=== PATIENT | female | born 1945 | race Caucasian/White ===

== ENCOUNTER 2017-10-18 11:31 | Emergency (ER) | payer OTHER ==
[~2017-10-18] VITALS: Ht 170.2 cm; Wt 76.2 kg
[2017-10-18 11:42] VITALS: BP 152/76
[2017-10-18] MEDS ORDERED: BENA20TA PO (11:48)
[2017-10-18] MEDS ORDERED: BACL10TA4 PO (11:48)
[2017-10-18] MEDS ORDERED: MIC5 PO (11:48)
[2017-10-18] MEDS ORDERED: ATOR20TA PO (11:48)
[2017-10-18] MEDS ORDERED: GABA300C PO (11:48)
--- NOTE | 2017-10-18 12:05 | NUR ---
Patient ambulated to bed 11 at this time.
--- NOTE | 2017-10-18 12:21 | NUR ---
PATIENT PRESENTS TO ED WITH c/o POSTERIOR JUÁREZ THAT STARTED TODAY;DENIES DIZZINEESS/BLURYY OF VISSION;DENIES ANY NUMBNESS/TONGLING SENSATION;HX OF MIGRAINE AND DM;HAD A NECK AND BACK SURGERY; DENIES N/V/D; SKIN IS PINK/WARM/DRY; AAOX4 WITH EVEN AND STEADY GAIT; PT DENIES ANY FEVER, CP, SOB, OR COUGH AT THIS TIME; PATIENT STATES PAIN OF 8/10 AT THIS TIME; PATIENT POSITIONED FOR COMFORT; HOB ELEVATED; BEDRAILS UP X2; BED DOWN. ER MD MADE AWARE OF PT STATUS.
[2017-10-18] MEDS ORDERED: DEXAMETHASONE 10 MG/ML VIAL IM ONE (13:05)
[2017-10-18] MEDS ORDERED: HYDROmorphone PFS 2 MG/ML SYR IM ONE (13:05)
--- NOTE | 2017-10-18 13:28 | NUR ---
PT RETURNED FROM RADIOLOGY
[2017-10-18] MEDS ORDERED: ONDANSETRON 4 MG ODT PO ONE (14:50)
--- NOTE | 2017-10-18 15:07 | NUR ---
pt vomitted the zofran;melissa ramirez made aware;ordered for phenergan IM .
[2017-10-18] MEDS ORDERED: PROMETHAZINE 25 MG/ML VIAL IM ONE (15:20)
[2017-10-18] MEDS ORDERED: NACL 0.9% 1,000 ML IV SCH (15:47)
--- NOTE | 2017-10-18 15:48 | NUR ---
PER ER MD NOT TO DISCHARGE PT YET;WILL ORDER IVF AND BLOOD WORK;
[2017-10-18] MEDS ORDERED: FAMOTIDINE 20 MG/2 ML VIAL IVP ONE (15:50)
[2017-10-18] MEDS ORDERED: ONDANSETRON 4 MG/2 ML VIAL IVP ONE (15:50)
[2017-10-18 16:57] LABS: ANION GAP 16.8 (8-16); CREATININE 0.7 mg/dL (0.6-1.3); POTASSIUM 3.8 mmol/L (3.5-5.1)
[2017-10-18 16:59] LABS: BASOPHILS # (AUTO) 0.3 K/uL (0.00-0.22); EOSINOPHILS # (AUTO) 0.1 K/uL (0-0.4); HEMATOCRIT 43.2 % (36-48); HEMOGLOBIN 14.1 g/dL (12.0-16.0); LYMPHOCYTES # (AUTO) 0.7 K/uL (2.5-16.5); MEAN CORPUSCULAR HEMOGLOBIN 29 pg (27-31); MEAN CORPUSCULAR HGB CONC 33 g/dL (33-37); MEAN CORPUSCULAR VOLUME 89 fL (80-94); MONOCYTES # (AUTO) 0.2 K/uL (0.8-1.0); NEUTROPHILS # (AUTO) 6.1 K/uL (1.8-7.7); PLATELET COUNT (AUTO) 140 K/uL (140-450); RED BLOOD CELL COUNT(AUTO) 4.88 MIL/uL (4.20-5.40); RED CELL DISTRIBUTION WIDTH 12.9 % (11.6-13.7); WHITE BLOOD COUNT (AUTO) 7.4 K/uL (4.8-10.8)
[2017-10-18 17:03] LABS: TOTAL BILIRUBIN 0.3 mg/dL (0.0-1.0)
[2017-10-18 17:55] LABS: APPEARANCE,URINE CLEAR (CLEAR); BILIRUBIN,URINE NEGATIVE (NEGATIVE); BLOOD, URINE NEGATIVE (NEGATIVE); COLOR,URINE YELLOW (YELLOW); LEUKOCYTE ESTERASE ,URINE NEGATIVE (NEGATIVE); NITRITE, URINE NEGATIVE (NEGATIVE); PH,URINE 5.5 (5.0-9.0); UGLUCOSE TRACE (NEGATIVE)
[2017-10-18 18:14] VITALS: BP 122/76
--- NOTE | 2017-10-18 18:14 | NUR ---
Patient discharged with v/s stable. Written and verbal after care instructions given and explained. Patient alert, oriented and verbalized understanding of instructions. Ambulatory with steady gait. All questions addressed prior to discharge. ID band removed. Patient advised to follow up with PMD. Rx of FIORICET given. Patient educated on indication of medication including possible reaction and side effects. Opportunity to ask questions provided and answered.
== END 2017-10-18 18:14 | disposition home or self-care (01) ==
LOC: MED 11:31
DX: G44.209 Tension-type headache, unspecified, not intractable (principal); E11.9 Type 2 diabetes mellitus without complications; R03.0 Elevated blood-pressure reading, without diagnosis of hypertension; Z88.8 Allergy status to other drugs, medicaments and biological substances
CPT/HCPCS: 36415; 70450; 72125; 80053; 81003; 82150; 82948; 83690; 85025; 96361; 96372; 96374; 96375; 99285; J1100; J1170; J2405; J2550; J3490; J7030; S0119

== ENCOUNTER 2018-10-02 12:57 | Emergency (ER) | payer OTHER ==
[~2018-10-02] VITALS: Ht 165.1 cm; Wt 75.3 kg
[~2018-10-02 12:57] MED LIST: ATOR20TA PO; BACL10TA4 PO; BENA20TA PO; GABA300C PO; MIC5 PO
[2018-10-02 13:07] VITALS: BP 131/61
--- NOTE | 2018-10-02 15:07 | NUR ---
PATIENT TAKEN TO ER BED 10 VIA WHEELCHAIR
--- NOTE | 2018-10-02 15:19 | NUR ---
73 yo f bib daughter w/ c/o migraine since yesterday, general weakness, nasal congestion, cough x 1 wk. reports that she received cortisone shots to the neck last week, worried that is causing her migraine. pt states that she took venkatesh this morning for her cold symptoms. denies n/v/d/fever. rr even and unlabored, lungs bl clear. aaox4, gcs 15. cms intact. abd soft, non-tender. er md notified. pt needs met, safety precautions in place. daughter at bedside. will continue to monitor.
--- NOTE | 2018-10-02 16:17 | NUR ---
pt lying in hospital [facility] with daughter at bedside. aaox4. rr even and unlabored. safety precautions in place, will continue to monitor.
[2018-10-02] MEDS ORDERED: KETOROLAC 60 MG/2 ML VIAL IM ONE (16:25)
[2018-10-02] MEDS ORDERED: METOCLOPRAMIDE 10 MG/2 ML INJ VIAL IM ONE (16:25)
--- NOTE | 2018-10-02 17:17 | NUR ---
pt lying in hospital [facility] with daughter at bedside. aaox4. rr even and unlabored. awaiting discharge paperwork. safety precautions in place, will continue to monitor.
[2018-10-02 18:00] VITALS: BP 130/68
--- NOTE | 2018-10-02 18:01 | NUR ---
Patient discharged with v/s stable. Written and verbal after care instructions given and explained. Patient alert, oriented and verbalized understanding of instructions. Ambulatory with steady gait. All questions addressed prior to discharge. ID band removed. Patient advised to follow up with PMD. Rx of Reglan given. Patient educated on indication of medication including possible reaction and side effects. Opportunity to ask questions provided and answered.
== END 2018-10-02 18:01 | disposition home or self-care (01) ==
LOC: MED 12:57
DX: R51 Headache (principal); R06.00 Dyspnea, unspecified; E11.9 Type 2 diabetes mellitus without complications; I10 Essential (primary) hypertension; Z88.8 Allergy status to other drugs, medicaments and biological substances; Z88.6 Allergy status to analgesic agent; Z79.84 Long term (current) use of oral hypoglycemic drugs; Z79.899 Other long term (current) drug therapy
CPT/HCPCS: 82948; 96372; 99283; J1885; J2765

== ENCOUNTER 2019-02-15 22:29 | Emergency (ER) | payer OTHER ==
[~2019-02-15] VITALS: Ht 167.6 cm; Wt 74.8 kg
[2019-02-15 22:40] VITALS: BP 140/70
--- NOTE | 2019-02-15 22:42 | NUR ---
TO LOBBY A/W BED AMBULATORY
--- NOTE | 2019-02-15 23:45 | NUR ---
PT AMBULATED TO ER BED 3
[2019-02-15] MEDS ORDERED: ONDA4TAB PO (23:57)
--- NOTE | 2019-02-16 | NUR ---
PT PRESENTS TO ED WITH COMPLAINTS OF ABDOMINAL PAIN SINCE MONDAY WORSENING TODAY. PT ALSO C/O DIARRHEA AND NAUSEA SINCE MONDAY. LBM TODAY, SOFT FORMED STOOL PER PATIENT. PT DENIES ANY VOMITING OR FEVER. PT STATES PAIN WORSENED THIS MORNING AT 0400. PT STATES "I WENT TO THE RESTROOM AND I GOT NAUSEOUS WHILE TRYING TO GO." FAMILY AT BEDSIDE. ABD SOFT, TENDER WITH PALPATION, ACTIVE BOWEL SOUNDS X4 QUADRANTS. PT STATES SHE TOOK HER BENAZEPRIL AND ATORVASTATIN TOGETHER AT NIGHT BUT THAT IS ROUTINE FOR HER AND NOTHING NEW.
[2019-02-16] MEDS ORDERED: fentaNYL 0.05 MG/ML VIAL IVP ONE (00:10)
[2019-02-16] MEDS ORDERED: ONDANSETRON 4 MG/2 ML VIAL IVP ONE (00:10)
[2019-02-16 00:28] LABS: APPEARANCE,URINE CLEAR (CLEAR); BILIRUBIN,URINE NEGATIVE (NEGATIVE); BLOOD, URINE NEGATIVE (NEGATIVE); COLOR,URINE YELLOW (YELLOW); LEUKOCYTE ESTERASE ,URINE NEGATIVE (NEGATIVE); NITRITE, URINE NEGATIVE (NEGATIVE); PH,URINE 6.5 (5.0-9.0); UGLUCOSE NEGATIVE (NEGATIVE)
[2019-02-16 00:33] LABS: BASOPHILS % (AUTO) 0.5 % (0.0-2.0); EOSINOPHILS # (AUTO) 0.2 K/uL (0-0.4); EOSINOPHILS % (AUTO) 3.1 % (0.0-4.0); HEMATOCRIT 42.7 % (36-48); HEMOGLOBIN 14.4 g/dL (12.0-16.0); LYMPHOCYTES # (AUTO) 1.9 K/uL (2.5-16.5); LYMPHOCYTES % (AUTO) 32.1 % (20.5-51.1); MEAN CORPUSCULAR HEMOGLOBIN 30 pg (27-31); MEAN CORPUSCULAR HGB CONC 34 g/dL (33-37); MEAN CORPUSCULAR VOLUME 89.1 fL (80-94); MONOCYTES # (AUTO) 0.6 K/uL (0.8-1.0); MONOCYTES % (AUTO) 10.3 % (1.7-9.3); NEUTROPHILS # (AUTO) 3.3 K/uL (1.8-7.7); PLATELET COUNT (AUTO) 159 K/uL (140-450); RED BLOOD CELL COUNT(AUTO) 4.79 MIL/uL (4.20-5.40); RED CELL DISTRIBUTION WIDTH 13.5 % (11.6-13.7)
[2019-02-16 00:37] LABS: RBC,URINE 0-5 /HPF (0-5); WBC,URINE 0-5 /HPF (0-5)
--- NOTE | 2019-02-16 00:39 | NUR ---
CT WITH CONTRAST INFORMED CONSENT FORM SIGNED.
[2019-02-16 00:43] LABS: ANION GAP 12.8 (8-16); CARBON DIOXIDE 26.1 mmol/L (21-32); CHLORIDE 105 mmol/L (98-107); CREATININE 0.7 mg/dL (0.6-1.3); GLUCOSE 184 mg/dL (74-106); POTASSIUM 3.9 mmol/L (3.5-5.1); SODIUM SERUM 140 mmol/L (136-145); UREA NITROGEN, BLOOD 13 mg/dL (7-18)
[2019-02-16 00:46] LABS: ALBUMIN 3.9 g/dL (3.4-5.0); ASPARTATE AMINOTRANSFERASE 29 U/L (15-37); LIPASE 104 U/L (73-393); TOTAL BILIRUBIN 0.2 mg/dL (0.0-1.0)
--- NOTE | 2019-02-16 01:25 | NUR ---
PT TAKEN TO CT VIA WC.
--- NOTE | 2019-02-16 01:38 | NUR ---
PT RETURNED FROM CT
[2019-02-16 02:45] VITALS: BP 123/65
--- NOTE | 2019-02-16 02:45 | NUR ---
Patient discharged with v/s stable. Written and verbal after care instructions given and explained. Patient verbalized understanding. Ambulatory with steady gait. All questions addressed prior to discharge. Advised to follow up with PMD in 1-2 days.
== END 2019-02-16 02:48 | disposition home or self-care (01) ==
LOC: MED 22:29
DX: R10.9 Unspecified abdominal pain (principal); R19.7 Diarrhea, unspecified; E11.9 Type 2 diabetes mellitus without complications; I10 Essential (primary) hypertension; E78.00 Pure hypercholesterolemia, unspecified; Z88.8 Allergy status to other drugs, medicaments and biological substances; Z79.899 Other long term (current) drug therapy
CPT/HCPCS: 36415; 74177; 80053; 81001; 83690; 85025; 96374; 96375; 99284; J2405; J3010; Q9967

== ENCOUNTER 2019-07-15 11:35 | Emergency (ER) | payer OTHER ==
[~2019-07-15] VITALS: Ht 167.6 cm; Wt 73.5 kg
[~2019-07-15 11:35] MED LIST changes: +ONDA4TAB PO
--- NOTE | 2019-07-15 11:36 | NUR ---
Patient BIBA ALS, transferred to bed 2. RN evaluating patient at bedside.
[2019-07-15 11:39] VITALS: BP 131/80
--- NOTE | 2019-07-15 11:52 | NUR ---
Dr. Andino is evaluating the patient at bedside.
--- NOTE | 2019-07-15 12:01 | NUR ---
PT BIBA WITH C/O PALPITATIONS. PT DENIES PALPITATIONS AT THIS TIME. PT STATES THAT SHE FEELS WEAK IN HER LEGS AND HER LEGS FEEL SHAKY. PT DENIES CP, SOB, N/V/D AT THIS TIME. PT STATES THAT SHE HAS NECK PAIN THAT IS SHARP AND RATES THE PAIN 6/10 AT THIS TIME, PT STATES THAT SHE HAS HAD NECK PAIN FOR 1 YEAR. PT PRESENTS WITH A CLEAR SPEECH, AAOX4, SKIN IS WARM AND DRY. VSS. PT POSITIONED FOR COMFORT. BED RAIL UP X 1 FOR PT SAFETY. ER MD AWARE OF PT STATUS. ALLERGY: NAPROXENE HX: DM, HTN, ARTHRITIS RX: GABAPENTIN, BACLOFEN, GLIMPERIDE
--- NOTE | 2019-07-15 12:28 | NUR ---
Patient assisted to restroom. Pt noted with steady gait. Pt assisted back into bed 2 and placed back onto diagnostic cardiac sonographer, pulse oximetry and blood pressure monitoring. Patient placed into position of comfort.
[2019-07-15 12:39] LABS: BASOPHILS % (AUTO) 0.6 % (0.0-2.0); EOSINOPHILS # (AUTO) 0.2 K/uL (0-0.4); EOSINOPHILS % (AUTO) 3.4 % (0.0-4.0); HEMATOCRIT 42.8 % (36-48); HEMOGLOBIN 14.2 g/dL (12.0-16.0); LYMPHOCYTES # (AUTO) 1.8 K/uL (2.5-16.5); LYMPHOCYTES % (AUTO) 31.8 % (20.5-51.1); MEAN CORPUSCULAR HEMOGLOBIN 31 pg (27-31); MEAN CORPUSCULAR HGB CONC 33 g/dL (33-37); MEAN CORPUSCULAR VOLUME 92.7 fL (80-94); MONOCYTES # (AUTO) 0.6 K/uL (0.8-1.0); MONOCYTES % (AUTO) 10.2 % (1.7-9.3); PLATELET COUNT (AUTO) 161 K/uL (140-450); RED BLOOD CELL COUNT(AUTO) 4.62 MIL/uL (4.20-5.40); WHITE BLOOD COUNT (AUTO) 5.5 K/uL (4.8-10.8)
[2019-07-15 12:49] LABS: ANION GAP 11.4 (8-16); CARBON DIOXIDE 29.4 mmol/L (21-32); CHLORIDE 106 mmol/L (98-107); CREATININE 0.6 mg/dL (0.6-1.3); GLUCOSE 135 mg/dL (74-106); POTASSIUM 4.8 mmol/L (3.5-5.1); SODIUM SERUM 142 mmol/L (136-145); UREA NITROGEN, BLOOD 10 mg/dL (7-18)
[2019-07-15 12:55] LABS: ALBUMIN 3.8 g/dL (3.4-5.0); ASPARTATE AMINOTRANSFERASE 32 U/L (15-37); TOTAL BILIRUBIN 0.3 mg/dL (0.0-1.0)
[2019-07-15 13:59] VITALS: BP 133/63
--- NOTE | 2019-07-15 13:59 | NUR ---
Patient discharged with v/s stable. Written and verbal after care instructions given and explained. Patient verbalized understanding. Ambulatory with steady gait. All questions addressed prior to discharge. Advised to follow up with PMD.
== END 2019-07-15 13:59 | disposition home or self-care (01) ==
LOC: MED 11:35
DX: R00.2 Palpitations (principal); E11.9 Type 2 diabetes mellitus without complications; I10 Essential (primary) hypertension; Z79.899 Other long term (current) drug therapy; Z88.8 Allergy status to other drugs, medicaments and biological substances; Z88.6 Allergy status to analgesic agent
CPT/HCPCS: 36415; 71045; 80053; 83880; 84443; 84484; 85025; 93005; 99284; Q0092

== ENCOUNTER 2019-08-24 13:49 | Emergency (ER) | payer OTHER ==
[~2019-08-24] VITALS: Ht 165.1 cm; Wt 59.0 kg
[2019-08-24 14:02] VITALS: BP 153/77
--- NOTE | 2019-08-24 14:02 | NUR ---
PT AMBULATED TO BED 12
[2019-08-24] MEDS ORDERED: PROMETHAZINE 25 MG/ML VIAL IM ONE (14:40)
[2019-08-24] MEDS ORDERED: FAMOTIDINE 20 MG/2 ML VIAL IVP ONE (14:40)
[2019-08-24] MEDS ORDERED: MORPHINE SULFATE 4 MG/ML SYR IVP ONE (14:40)
[2019-08-24] MEDS ORDERED: hydrOXYzine HCL 25 MG TAB PO ONE (14:40)
--- NOTE | 2019-08-24 15:15 | NUR ---
74/F PRESENTS TO ED, C/O OCCIPITAL HEADACHE RADIATING TO POSTERIOR NECK, WORSENING X5 DAYS. PT REPORTS CHRONIC NECK AND BACK PAIN WITH HX SPINAL FUSION. DENIES TRAUMA/INJURY. NO DEFORMITY, SWELLING OR ERYTHEMA NOTED ON NECK. PT REPORTS INTERMITTENT NAUSEA AND INTERMITTENT DIZZINESS. PT AWAKE AND ALERT, SKIN NORMAL COLOR WARM AND DRY, RR EVEN AND UNLABORED. HX DM, HTN, HLD, NECK AND BACK SPINAL FUSIONS
[2019-08-24 15:17] LABS: BASOPHILS % (AUTO) 0.7 % (0.0-2.0); EOSINOPHILS # (AUTO) 0.1 K/uL (0-0.4); EOSINOPHILS % (AUTO) 2.3 % (0.0-4.0); HEMATOCRIT 45.4 % (36-48); HEMOGLOBIN 15.1 g/dL (12.0-16.0); LYMPHOCYTES # (AUTO) 1.7 K/uL (2.5-16.5); LYMPHOCYTES % (AUTO) 28.2 % (20.5-51.1); MEAN CORPUSCULAR HEMOGLOBIN 30 pg (27-31); MEAN CORPUSCULAR HGB CONC 33 g/dL (33-37); MONOCYTES # (AUTO) 0.4 K/uL (0.8-1.0); MONOCYTES % (AUTO) 6.4 % (1.7-9.3); NEUTROPHILS # (AUTO) 3.9 K/uL (1.8-7.7); NEUTROPHILS % (AUTO) 62.4 % (42.2-75.2); PLATELET COUNT (AUTO) 172 K/uL (140-450); RED BLOOD CELL COUNT(AUTO) 4.98 MIL/uL (4.20-5.40); RED CELL DISTRIBUTION WIDTH 13.5 % (11.6-13.7); WHITE BLOOD COUNT (AUTO) 6.2 K/uL (4.8-10.8)
[2019-08-24] MEDS ORDERED: ONDANSETRON 4 MG/2 ML VIAL IVP ONE (15:30)
[2019-08-24] MEDS ORDERED: KETOROLAC 30 MG/ML VIAL IVP ONE (15:30)
--- NOTE | 2019-08-24 15:37 | NUR ---
PT REFUSED ORDERED MEDS MORPHINE, ZOFRAN, PHENERGAN AND ATARAX. PT OK WITH TAKING PEPCID. PT REQUESTED FOR TORADOL. VERBAL ORDER FOR TORADOL 30MG IVP. WILL CARRY OUT ORDERS.
[2019-08-24 15:38] LABS: ANION GAP 15.5 (8-16); CARBON DIOXIDE 28.4 mmol/L (21-32); CHLORIDE 105 mmol/L (98-107); CREATININE 0.7 mg/dL (0.6-1.3); GLUCOSE 142 mg/dL (74-106); POTASSIUM 3.9 mmol/L (3.5-5.1); SODIUM SERUM 145 mmol/L (136-145); UREA NITROGEN, BLOOD 9 mg/dL (7-18)
[2019-08-24 15:43] LABS: ALBUMIN 4.3 g/dL (3.4-5.0); ASPARTATE AMINOTRANSFERASE 25 U/L (15-37); TOTAL BILIRUBIN 0.4 mg/dL (0.0-1.0)
[2019-08-24 15:44] LABS: PROTHROMBIN TIME 10.1 secs (10.8-13.4)
[2019-08-24 15:48] LABS: APPEARANCE,URINE CLEAR (CLEAR); BILIRUBIN,URINE NEGATIVE (NEGATIVE); BLOOD, URINE NEGATIVE (NEGATIVE); LEUKOCYTE ESTERASE ,URINE NEGATIVE (NEGATIVE); NITRITE, URINE NEGATIVE (NEGATIVE); PH,URINE 5.5 (5.0-9.0); UGLUCOSE NEGATIVE (NEGATIVE)
[2019-08-24 15:49] LABS: COLOR,URINE STRAW (YELLOW)
[2019-08-24 16:44] VITALS: BP 134/77
== END 2019-08-24 16:44 | disposition home or self-care (01) ==
LOC: MED 13:49
DX: R51 Headache (principal); R11.2 Nausea with vomiting, unspecified; E11.9 Type 2 diabetes mellitus without complications; I10 Essential (primary) hypertension; Z88.6 Allergy status to analgesic agent
CPT/HCPCS: 36415; 70450; 71045; 80053; 81003; 84484; 85025; 85610; 85730; 93005; 96374; 96375; 99284; J1885; J3490; Q0092; J2270; J2405; J2550

== ENCOUNTER 2020-04-16 11:44 | Emergency (ER) | payer OTHER ==
[~2020-04-16] VITALS: Ht 165.1 cm; Wt 73.6 kg
[2020-04-16 11:52] VITALS: BP 136/69
[2020-04-16] MEDS ORDERED: HYDR-5092 PO (12:02)
--- NOTE | 2020-04-16 12:15 | NUR ---
PT BIB SELF C/O LT FACE/NECK/SHOULDER PAIN AND RT ELBOW PAIN S/P MEC FALL 5 DAYS AGO. NO KO, PAIN /10. NO VISIBLE TRAUMA NOTED. HX-HNT,HIGH CHOLESTEROL, CHRONIC PAIN MEDS-NORCO, GABAPENTINPT DENIES N/V/D; SKIN IS INTACT, PINK/WARM/DRY; AAOX4, PERRL, WITH EVEN AND STEADY GAIT; LUNGS CLEAR BL, BREATHING UNLABORED; HR EVEN AND REGULAR, BL PERIPHERAL PULSES PRESENT; BS ACTIVE X4, NO TENDERNESS TO PALPATION. PT DENIES ANY FEVER, CP, SOB, OR COUGH AT THIS TIME; PT STATES 5/10 PAIN AT THIS TIME; VSS; PATIENT POSITIONED FOR COMFORT; HOB ELEVATED; BEDRAILS UP X2; BED DOWN.
--- NOTE | 2020-04-16 12:53 | NUR ---
pt sent to ct with tech via bed aaox4 at this time
--- NOTE | 2020-04-16 12:59 | NUR ---
PT RETURNED FROM CT SCAN
--- NOTE | 2020-04-16 13:34 | NUR ---
NEURO WNL UPON DISCHARGE
[2020-04-16 13:35] VITALS: BP 112/68
--- NOTE | 2020-04-16 13:35 | NUR ---
Patient discharged with v/s stable. Written and verbal after care instructions given and explained. Patient alert, oriented and verbalized understanding of instructions. Ambulatory with steady gait. All questions addressed prior to discharge. ID band removed. Patient advised to follow up with PMD. Rx of MOTRIN given. Patient educated on indication of medication including possible reaction and side effects. Opportunity to ask questions provided and answered. PT INSTRUCTED TO APPLY ICE PRN 2-3 TIMES A MONIQUE FOR APPROX 20 MIN PT GIVEN COPY OF CT SCAN
== END 2020-04-16 13:35 | disposition home or self-care (01) ==
LOC: MED 11:44
DX: S09.90XA Unspecified injury of head, initial encounter (principal); M79.18 Myalgia, other site; I10 Essential (primary) hypertension; E78.5 Hyperlipidemia, unspecified; G89.29 Other chronic pain; Z98.890 Other specified postprocedural states; W19.XXXA Unspecified fall, initial encounter; Y93.89 Activity, other specified; Y92.89 Other specified places as the place of occurrence of the external cause; Y99.8 Other external cause status
CPT/HCPCS: 70450; 99284

== ENCOUNTER 2021-01-18 11:20 | Emergency (ER) | payer OTHER ==
[~2021-01-18] VITALS: Ht 167.6 cm; Wt 72.6 kg
[~2021-01-18 11:20] MED LIST changes: +HYDR-5092 PO; -MIC5 PO
[2021-01-18 11:28] VITALS: BP 124/61
[2021-01-18] MEDS ORDERED: KETOROLAC 30 MG/ML VIAL IM ONE (12:55)
[2021-01-18 13:12] LABS: BASOPHILS % (AUTO) 0.6 % (0.0-2.0); EOSINOPHILS # (AUTO) 0.1 K/uL (0-0.4); HEMATOCRIT 42.1 % (36-48); LYMPHOCYTES # (AUTO) 1.6 K/uL (2.5-16.5); LYMPHOCYTES % (AUTO) 30.5 % (20.5-51.1); MEAN CORPUSCULAR HEMOGLOBIN 31 pg (27-31); MEAN CORPUSCULAR HGB CONC 33 g/dL (33-37); MEAN CORPUSCULAR VOLUME 91.6 fL (80-94); MONOCYTES # (AUTO) 0.4 K/uL (0.8-1.0); MONOCYTES % (AUTO) 8.3 % (1.7-9.3); NEUTROPHILS # (AUTO) 3.1 K/uL (1.8-7.7); NEUTROPHILS % (AUTO) 58.6 % (42.2-75.2); PLATELET COUNT (AUTO) 149 K/uL (140-450); RED CELL DISTRIBUTION WIDTH 13.5 % (11.6-13.7); WHITE BLOOD COUNT (AUTO) 5.3 K/uL (4.8-10.8)
[2021-01-18 13:19] LABS: ANION GAP 10.1 (8-16); CARBON DIOXIDE 29.7 mmol/L (21-32); CHLORIDE 107 mmol/L (98-107); CREATININE 0.6 mg/dL (0.6-1.3); GLUCOSE 142 mg/dL (74-106); POTASSIUM 3.8 mmol/L (3.5-5.1); SODIUM SERUM 143 mmol/L (136-145); UREA NITROGEN, BLOOD 10 mg/dL (7-18)
[2021-01-18] MEDS ORDERED: LORA10SG1 PO (14:27)
[2021-01-18 14:44] VITALS: BP 124/61
== END 2021-01-18 14:45 | disposition home or self-care (01) ==
LOC: MED 11:20
DX: G43.909 Migraine, unspecified, not intractable, without status migrainosus (principal); R00.2 Palpitations; E11.9 Type 2 diabetes mellitus without complications; I10 Essential (primary) hypertension; Z88.8 Allergy status to other drugs, medicaments and biological substances; Z79.899 Other long term (current) drug therapy
CPT/HCPCS: 36415; 70450; 71045; 80048; 84484; 85025; 93005; 96372; 99285; J1885

== ENCOUNTER 2021-03-10 04:20 | Emergency (ER) | payer OTHER ==
[~2021-03-10] VITALS: Ht 167.6 cm; Wt 72.6 kg
[~2021-03-10 04:20] MED LIST changes: +LORA10SG1 PO
[2021-03-10 04:33] VITALS: BP 117/67
[2021-03-10] MEDS ORDERED: HYDROcodone/APAP 5/325 MG 1 TAB TAB PO ONE (04:55)
[2021-03-10] MEDS ORDERED: NACL 0.9% 1,000 ML IV ONE (05:35)
[2021-03-10] MEDS ORDERED: MORPHINE SULFATE 4 MG/ML SYR IVP ONE (05:35)
[2021-03-10] MEDS ORDERED: ONDANSETRON 4 MG/2 ML VIAL IVP ONE (05:35)
[2021-03-10 06:41] LABS: HEMATOCRIT 45.1 % (36-48); LYMPHOCYTES % (AUTO) 9.4 % (20.5-51.1); MEAN CORPUSCULAR HEMOGLOBIN 30 pg (27-31); MEAN CORPUSCULAR HGB CONC 33 g/dL (33-37); MEAN CORPUSCULAR VOLUME 91.3 fL (80-94); MONOCYTES # (AUTO) 0.3 K/uL (0.8-1.0); MONOCYTES % (AUTO) 2.9 % (1.7-9.3); NEUTROPHILS # (AUTO) 9.7 K/uL (1.8-7.7); NEUTROPHILS % (AUTO) 87.7 % (42.2-75.2); PLATELET COUNT (AUTO) 174 K/uL (140-450); RED BLOOD CELL COUNT(AUTO) 4.94 MIL/uL (4.20-5.40); RED CELL DISTRIBUTION WIDTH 12.8 % (11.6-13.7); WHITE BLOOD COUNT (AUTO) 11.1 K/uL (4.8-10.8)
[2021-03-10 06:47] LABS: ALBUMIN 4.5 g/dL (3.4-5.0); ASPARTATE AMINOTRANSFERASE 17 U/L (15-37); CHLORIDE 102 mmol/L (98-107); CREATININE 0.8 mg/dL (0.6-1.3); GLUCOSE 248 mg/dL (74-106); SODIUM SERUM 139 mmol/L (136-145); TOTAL BILIRUBIN 0.4 mg/dL (0.0-1.0); UREA NITROGEN, BLOOD 14 mg/dL (7-18)
[2021-03-10] MEDS ORDERED: KETOROLAC 30 MG/ML VIAL IVP ONE (07:10)
[2021-03-10] MEDS ORDERED: METOCLOPRAMIDE 10 MG/2 ML INJ VIAL IVP ONE (07:45)
[2021-03-10 09:25] VITALS: BP 103/59
== END 2021-03-10 09:26 | disposition home or self-care (01) ==
LOC: MED 04:20
DX: R51.9 Headache, unspecified (principal); E11.9 Type 2 diabetes mellitus without complications; I10 Essential (primary) hypertension; Z88.6 Allergy status to analgesic agent; Z79.899 Other long term (current) drug therapy
CPT/HCPCS: 36415; 70450; 80053; 85025; 96361; 96374; 96375; 99284; J1885; J2765; J7030

== ENCOUNTER 2021-04-15 09:46 | Emergency (ER) | payer OTHER ==
[~2021-04-15] VITALS: Ht 165.1 cm; Wt 72.6 kg
[2021-04-15 09:54] VITALS: BP 127/88
--- NOTE | 2021-04-15 10:36 | NUR ---
BIB SELF C/O HEADACHE & LEFT EAR PAIN RADIATING TO LEFT CHEST PAIN& LEFT ARM X YESTERDAY. BLOOD SUGAR 196 AT THIS TIME. PT HAD LEFT EAR INFECTION 2 WEEKS AGO & FINISHED ANTIBIOTIC. PMH: DM, HTN, HLD, BACK, NECK SURGERY
--- NOTE | 2021-04-15 10:49 | NUR ---
PT TAKEN TO BED 5 AMBULATED WITH STEADY GAIT.
[2021-04-15] MEDS ORDERED: ACETAMINOPHEN EXTRA STRENGTH 500 MG TAB PO ONE (11:35)
[2021-04-15 11:52] LABS: BASOPHILS % (AUTO) 0.7 % (0.0-2.0); EOSINOPHILS # (AUTO) 0.1 K/uL (0-0.4); EOSINOPHILS % (AUTO) 2.1 % (0.0-4.0); HEMATOCRIT 44.6 % (36-48); HEMOGLOBIN 14.9 g/dL (12.0-16.0); LYMPHOCYTES # (AUTO) 1.6 K/uL (2.5-16.5); LYMPHOCYTES % (AUTO) 26.8 % (20.5-51.1); MEAN CORPUSCULAR HEMOGLOBIN 30 pg (27-31); MEAN CORPUSCULAR HGB CONC 33 g/dL (33-37); MEAN CORPUSCULAR VOLUME 90.2 fL (80-94); MONOCYTES # (AUTO) 0.5 K/uL (0.8-1.0); MONOCYTES % (AUTO) 7.8 % (1.7-9.3); NEUTROPHILS # (AUTO) 3.7 K/uL (1.8-7.7); NEUTROPHILS % (AUTO) 62.6 % (42.2-75.2); PLATELET COUNT (AUTO) 151 K/uL (140-450); RED BLOOD CELL COUNT(AUTO) 4.95 MIL/uL (4.20-5.40); RED CELL DISTRIBUTION WIDTH 13.5 % (11.6-13.7); WHITE BLOOD COUNT (AUTO) 5.9 K/uL (4.8-10.8)
--- NOTE | 2021-04-15 12:07 | NUR ---
PATIENT DOES NOT WISH TO HAVE TYLENOL AT THIS TIME AND IS REQUESTING A TORADOL MADE AWARE
[2021-04-15 12:13] LABS: ANION GAP 13.4 (8-16); CARBON DIOXIDE 26.7 mmol/L (21-32); CHLORIDE 105 mmol/L (98-107); CREATININE 0.7 mg/dL (0.6-1.3); GLUCOSE 180 mg/dL (74-106); POTASSIUM 4.1 mmol/L (3.5-5.1); SODIUM SERUM 141 mmol/L (136-145); UREA NITROGEN, BLOOD 8 mg/dL (7-18)
[2021-04-15 12:18] LABS: ALBUMIN 4.1 g/dL (3.4-5.0); ASPARTATE AMINOTRANSFERASE 23 U/L (15-37); TOTAL BILIRUBIN 0.5 mg/dL (0.0-1.0)
--- NOTE | 2021-04-15 12:25 | NUR ---
PT TAKEN TO CT SCAN VIA WHEELCHAIR
--- NOTE | 2021-04-15 12:47 | NUR ---
PT BACK FROM CT
--- NOTE | 2021-04-15 13:25 | NUR ---
Patient appears to be resting comfortably in bed. Vital Signs within normal limits. Respirations even and unlabored.
[2021-04-15] MEDS ORDERED: KETOROLAC 15 MG/ML VIAL IVP ONE (13:50)
[2021-04-15] MEDS ORDERED: KETOROLAC 15 MG/ML VIAL ONE (13:53)
[2021-04-15] MEDS ORDERED: LID5T TP (13:53)
[2021-04-15] MEDS ORDERED: ACET-2619 PO (13:54)
[2021-04-15 14:01] VITALS: BP 127/88
--- NOTE | 2021-04-15 14:01 | NUR ---
Patient discharged with v/s stable. Written and verbal after care instructions given and explained. Patient alert, oriented and verbalized understanding of instructions. Ambulatory with steady gait. All questions addressed prior to discharge. ID band removed. Patient advised to follow up with PMD. Rx of LIDOCAINE PATCH, TYLENOL given. Patient educated on indication of medication including possible reaction and side effects. Opportunity to ask questions provided and answered.
== END 2021-04-15 14:01 | disposition home or self-care (01) ==
LOC: MED 09:46
DX: M54.2 Cervicalgia (principal); R07.9 Chest pain, unspecified; E11.9 Type 2 diabetes mellitus without complications; I10 Essential (primary) hypertension; Z98.890 Other specified postprocedural states; W19.XXXA Unspecified fall, initial encounter; Y93.89 Activity, other specified; Y92.89 Other specified places as the place of occurrence of the external cause; Y99.8 Other external cause status
CPT/HCPCS: 36415; 70498; 71045; 71275; 80053; 82948; 84484; 85025; 93005; 96374; 99285; J1885; Q9967

== ENCOUNTER 2021-11-04 16:39 | Emergency (ER) | payer OTHER ==
[~2021-11-04] VITALS: Ht 165.1 cm; Wt 71.7 kg
[~2021-11-04 16:39] MED LIST changes: +ACET-2619 PO; +LID5T TP
[2021-11-04 16:56] VITALS: BP 139/70
--- NOTE | 2021-11-04 17:16 | NUR ---
76 y/o female, c/o neck pain that radiates to head resulting in a JUÁREZ. Pt also has c/o fatigue, dizziness, and lightheaded for 1 week. denies syncope, loc or fall. Current pain level is 10/10. Per patient "she feels like she cannot lift her head up and needs to support herself." pt denies any CP, SOB, N/V at this time. pmh: dm2, htn med: benazapril allergy: metformin
--- NOTE | 2021-11-04 17:46 | NUR ---
DR. FRASER BEDSIDE EVALUATING PT
[2021-11-04] MEDS ORDERED: METOCLOPRAMIDE 10 MG/2 ML INJ VIAL IVP ONE (18:00)
[2021-11-04] MEDS ORDERED: NACL 0.9% 500 ML IV ONE (18:00)
[2021-11-04] MEDS ORDERED: KETOROLAC 15 MG/ML VIAL IVP ONE (18:00)
--- NOTE | 2021-11-04 18:21 | NUR ---
BLOOD WORK COLLECTED AND HANDED TO MECHANICAL DESIGN ENGINEER BEDSIDE
--- NOTE | 2021-11-04 18:23 | NUR ---
PT TAKEN TO CT VIA HUGO
[2021-11-04 18:28] LABS: BASOPHILS # (AUTO) 0.1 K/uL (0.00-0.22); BASOPHILS % (AUTO) 0.9 % (0.0-2.0); EOSINOPHILS # (AUTO) 0.2 K/uL (0-0.4); EOSINOPHILS % (AUTO) 2.7 % (0.0-4.0); HEMATOCRIT 41.7 % (36-48); HEMOGLOBIN 13.8 g/dL (12.0-16.0); LYMPHOCYTES # (AUTO) 2.2 K/uL (2.5-16.5); LYMPHOCYTES % (AUTO) 37.8 % (20.5-51.1); MEAN CORPUSCULAR HEMOGLOBIN 30 pg (27-31); MEAN CORPUSCULAR HGB CONC 33 g/dL (33-37); MEAN CORPUSCULAR VOLUME 89.8 fL (80-94); MONOCYTES # (AUTO) 0.5 K/uL (0.8-1.0); MONOCYTES % (AUTO) 8.5 % (1.7-9.3); NEUTROPHILS # (AUTO) 2.9 K/uL (1.8-7.7); NEUTROPHILS % (AUTO) 50.1 % (42.2-75.2); PLATELET COUNT (AUTO) 159 K/uL (140-450); RED BLOOD CELL COUNT(AUTO) 4.65 MIL/uL (4.20-5.40); RED CELL DISTRIBUTION WIDTH 14.1 % (11.6-13.7); WHITE BLOOD COUNT (AUTO) 5.8 K/uL (4.8-10.8)
--- NOTE | 2021-11-04 18:30 | NUR ---
pt returned to bed [address] [facility]
[2021-11-04 18:41] LABS: ANION GAP 13.6 (8-16); CARBON DIOXIDE 29.4 mmol/L (21-32); CHLORIDE 104 mmol/L (98-107); CREATININE 0.6 mg/dL (0.6-1.3); GLUCOSE 132 mg/dL (74-106); SODIUM SERUM 143 mmol/L (136-145); UREA NITROGEN, BLOOD 10 mg/dL (7-18)
--- NOTE | 2021-11-04 18:52 | NUR ---
PATIENT WAS GIVEN A CUP OF WATER.
--- NOTE | 2021-11-04 19:07 | NUR ---
Note eugeneone in EDM - 11/04/21 at 1907 by [email or web address] Patient discharged with v/s stable. Written and verbal after care instructions given and explained. Patient alert, oriented and verbalized understanding of instructions. Ambulatory with steady gait. All questions addressed prior to discharge. ID band removed. Patient advised to follow up with PMD. Rx of IBUPROFEN given. Patient educated on indication of medication including possible reaction and side effects. Opportunity to ask questions provided and answered.
--- NOTE | 2021-11-04 19:20 | NUR ---
Pt report given to DOMINICK FRAGA. Transfer of care at this time.
[2021-11-04] MEDS ORDERED: MORPHINE SULFATE 4 MG/ML SYR IVP ONE (19:55)
--- NOTE | 2021-11-04 20:06 | NUR ---
Patient refused Morphine IV medication, Dr. León notified.
--- NOTE | 2021-11-04 20:40 | NUR ---
Patient signed consent for CT scan with contrast.
--- NOTE | 2021-11-04 20:51 | NUR ---
Patient returned from CT scan.
--- NOTE | 2021-11-04 21:39 | NUR ---
Dr. Wilson at bedside to explain results and treatment plans.
[2021-11-04] MEDS ORDERED: CYCL-711 PO (21:41)
[2021-11-04 21:57] VITALS: BP 140/71
--- NOTE | 2021-11-04 21:57 | NUR ---
Patient discharged with v/s stable. Written and verbal after care instructions given and explained. Patient alert, oriented and verbalized understanding of instructions. Ambulatory with steady gait. All questions addressed prior to discharge. ID band removed. Patient advised to follow up with PMD. Rx of FLEXERIL given. Patient educated on indication of medication including possible reaction and side effects. Opportunity to ask questions provided and answered.
== END 2021-11-04 21:57 | disposition home or self-care (01) ==
LOC: MED 16:39
DX: M54.2 Cervicalgia (principal); R51.9 Headache, unspecified; E11.9 Type 2 diabetes mellitus without complications; I10 Essential (primary) hypertension; Z98.890 Other specified postprocedural states; Z79.899 Other long term (current) drug therapy; Z88.8 Allergy status to other drugs, medicaments and biological substances
CPT/HCPCS: 36415; 70450; 70496; 70498; 80048; 85025; 96361; 96374; 99285; J1885; J7030; Q9967; J2270; J2765

== ENCOUNTER 2022-12-24 14:08 | Emergency (ER) | payer MEDICARE, OTHER ==
[~2022-12-24] VITALS: Ht 167.6 cm; Wt 71.2 kg
[~2022-12-24 14:08] MED LIST changes: +CYCL-711 PO
--- NOTE | 2022-12-24 14:10 | NUR ---
PT W/C ASSISTED TO BED 8
[2022-12-24 14:27] VITALS: BP 145/77
[2022-12-24] MEDS ORDERED: NACL 0.9% 1,000 ML IV ONE (14:35)
[2022-12-24] MEDS ORDERED: ONDANSETRON 4 MG/2 ML VIAL IVP ONE (14:35)
--- NOTE | 2022-12-24 14:39 | NUR ---
lab at bedside
--- NOTE | 2022-12-24 14:42 | NUR ---
The patient's care was reviewed and supervised by MAC HODGES RN.
[2022-12-24 14:48] LABS: BASOPHILS % (AUTO) 0.5 % (0.0-2.0); EOSINOPHILS # (AUTO) 0.1 K/uL (0-0.4); EOSINOPHILS % (AUTO) 1.8 % (0.0-4.0); HEMATOCRIT 41.7 % (36-48); HEMOGLOBIN 14.1 g/dL (12.0-16.0); LYMPHOCYTES # (AUTO) 1.5 K/uL (2.5-16.5); LYMPHOCYTES % (AUTO) 22.7 % (20.5-51.1); MEAN CORPUSCULAR HEMOGLOBIN 30 pg (27-31); MEAN CORPUSCULAR HGB CONC 34 g/dL (33-37); MEAN CORPUSCULAR VOLUME 88.9 fL (80-94); MONOCYTES # (AUTO) 0.5 K/uL (0.8-1.0); MONOCYTES % (AUTO) 7.5 % (1.7-9.3); NEUTROPHILS # (AUTO) 4.6 K/uL (1.8-7.7); NEUTROPHILS % (AUTO) 67.5 % (42.2-75.2); PLATELET COUNT (AUTO) 152 K/uL (140-450); RED CELL DISTRIBUTION WIDTH 13.8 % (11.6-13.7); WHITE BLOOD COUNT (AUTO) 6.8 K/uL (4.8-10.8)
[2022-12-24] MEDS ORDERED: MECLIZINE 25 MG TAB PO ONE (14:55)
--- NOTE | 2022-12-24 15:06 | NUR ---
pt swabbed for covid(riddhi) and flu. walked and handed to lab .
[2022-12-24 15:12] LABS: ALBUMIN 3.9 g/dL (3.4-5.0); ANION GAP 11.6 (8-16); ASPARTATE AMINOTRANSFERASE 20 U/L (15-37); CARBON DIOXIDE 27.9 mmol/L (21-32); CHLORIDE 102 mmol/L (98-107); CREATININE 0.8 mg/dL (0.6-1.3); GLUCOSE 240 mg/dL (74-106); MAGNESIUM 1.8 mg/dL (1.8-2.4); POTASSIUM 3.5 mmol/L (3.5-5.1); SODIUM SERUM 138 mmol/L (136-145); TOTAL BILIRUBIN 0.3 mg/dL (0.0-1.0); UREA NITROGEN, BLOOD 7 mg/dL (7-18)
[2022-12-24 15:14] LABS: APPEARANCE,URINE CLEAR (CLEAR); BILIRUBIN,URINE NEGATIVE (NEGATIVE); BLOOD, URINE NEGATIVE (NEGATIVE); LEUKOCYTE ESTERASE ,URINE NEGATIVE (NEGATIVE); NITRITE, URINE NEGATIVE (NEGATIVE); UGLUCOSE 2+ (NEGATIVE)
[2022-12-24 15:18] LABS: COLOR,URINE WHITE YELLOW (YELLOW)
--- NOTE | 2022-12-24 15:20 | NUR ---
PT TAKEN TO CT VIA HUGO
--- NOTE | 2022-12-24 15:39 | NUR ---
PT BROUGHT BACK VIA HUGO
[2022-12-24] MEDS ORDERED: ACET-10509 PO (15:56)
[2022-12-24] MEDS ORDERED: DOXY-690 PO (15:56)
[2022-12-24] MEDS ORDERED: MECL-416 PO (16:00)
[2022-12-24] MEDS ORDERED: ONDA-188 PO (16:00)
[2022-12-24 16:13] VITALS: BP 119/68
--- NOTE | 2022-12-24 16:20 | NUR ---
IV removed, catheter intact and site benign. Applied folded 4x4 gauze and tape to stop bleeding.
[2022-12-24] MEDS ORDERED: LEVO750T75 PO (16:25)
--- NOTE | 2022-12-24 16:25 | NUR ---
Patient discharged with v/s stable. Written and verbal after care instructions FOR SINUSITIS AND BENIGN POSITIONAL VERTIGO given and explained. Patient alert, oriented and verbalized understanding of instructions. Ambulatory with steady gait. All questions addressed prior to discharge. ID band removed. Patient advised to follow up with PMD. Rx of TYLENOL XTRA STRENGTH, LEVOFLOXACIN , MECLIZINE AND ZOFRAN given. Opportunity to ask questions provided and answered.
--- NOTE | 2022-12-24 16:25 | NUR ---
Note jenny in EDM - 12/24/22 at 1629 by [facility] Patient discharged with v/s stable. Written and verbal after care instructions FOR SINUSITIS AND BENIGN POSITIONAL VERTIGO given and explained. Patient alert, oriented and verbalized understanding of instructions. Ambulatory with steady gait. All questions addressed prior to discharge. ID band removed. Patient advised to follow up with PMD. Rx of TYLENOL XTRA STRENGTH, VIBRAMYCIN, MECLIZINE AND ZOFRAN given. Opportunity to ask questions provided and answered.
--- NOTE | 2022-12-24 16:58 | NUR ---
The patient's care was reviewed and supervised by MAC HODGES RN.
== END 2022-12-24 16:25 | disposition home or self-care (01) ==
LOC: MED 14:08
DX: H81.391 Other peripheral vertigo, right ear (principal); Z20.822 Contact with and (suspected) exposure to COVID-19; J32.8 Other chronic sinusitis; E11.9 Type 2 diabetes mellitus without complications; I10 Essential (primary) hypertension; Z79.4 Long term (current) use of insulin; Z79.899 Other long term (current) drug therapy
CPT/HCPCS: 36415; 70450; 80053; 81003; 83735; 84484; 85025; 87426; 87804; 93005; 96361; 96374; 99285; J2405; J8597

== ENCOUNTER 2023-03-15 09:11 | Emergency (ER) | payer MEDICARE, OTHER ==
[~2023-03-15] VITALS: Ht 167.6 cm; Wt 70.8 kg
[~2023-03-15 09:11] MED LIST changes: +ACET-10509 PO; +LEVO750T75 PO; +MECL-416 PO
[2023-03-15 09:20] VITALS: BP 117/73; PULSE 79; RESP 18; TEMP 97.6; O2SAT 98
--- NOTE | 2023-03-15 09:25 | NUR ---
PT AMBULATED TO BED 9 FROM TRIAGE
[2023-03-15] MEDS ORDERED: KETOROLAC 30 MG/ML VIAL IM ONE (09:35)
[2023-03-15] MEDS ORDERED: LORazepam 1 MG TAB PO ONE (09:35)
--- NOTE | 2023-03-15 09:55 | NUR ---
PT MEDICATED PER MD ORDERS. NADR PT TOLERATED WELL
--- NOTE | 2023-03-15 09:56 | NUR ---
pt wheeled to radiology for CT scan
--- NOTE | 2023-03-15 10:04 | NUR ---
PT WHEELED BACK TO BED 9 FROM RADIOLOGY
[2023-03-15 10:26] LABS: BASOPHILS % (AUTO) 0.9 % (0.0-2.0); EOSINOPHILS # (AUTO) 0.1 K/uL (0-0.4); HEMATOCRIT 42.5 % (36-48); HEMOGLOBIN 14.3 g/dL (12.0-16.0); LYMPHOCYTES # (AUTO) 1.4 K/uL (2.5-16.5); LYMPHOCYTES % (AUTO) 32.2 % (20.5-51.1); MEAN CORPUSCULAR HEMOGLOBIN 31 pg (27-31); MEAN CORPUSCULAR HGB CONC 34 g/dL (33-37); MEAN CORPUSCULAR VOLUME 90.8 fL (80-94); MONOCYTES # (AUTO) 0.4 K/uL (0.8-1.0); MONOCYTES % (AUTO) 8.4 % (1.7-9.3); NEUTROPHILS # (AUTO) 2.5 K/uL (1.8-7.7); NEUTROPHILS % (AUTO) 55.5 % (42.2-75.2); PLATELET COUNT (AUTO) 161 K/uL (140-450); RED BLOOD CELL COUNT(AUTO) 4.68 MIL/uL (4.20-5.40); RED CELL DISTRIBUTION WIDTH 13.6 % (11.6-13.7); WHITE BLOOD COUNT (AUTO) 4.5 K/uL (4.8-10.8)
[2023-03-15 10:48] LABS: ANION GAP 12.4 (8-16); ASPARTATE AMINOTRANSFERASE 25 U/L (15-37); CARBON DIOXIDE 28.1 mmol/L (21-32); CHLORIDE 104 mmol/L (98-107); CREATININE 0.7 mg/dL (0.6-1.3); GLUCOSE 223 mg/dL (74-106); POTASSIUM 4.5 mmol/L (3.5-5.1); SODIUM SERUM 140 mmol/L (136-145); TOTAL BILIRUBIN 0.5 mg/dL (0.0-1.0); UREA NITROGEN, BLOOD 6 mg/dL (7-18)
[2023-03-15] MEDS ORDERED: LORA-476 PO (11:02)
== END 2023-03-15 11:09 | disposition home or self-care (01) ==
LOC: MED 09:11
DX: R25.1 Tremor, unspecified (principal); R51.9 Headache, unspecified; E11.9 Type 2 diabetes mellitus without complications; J45.909 Unspecified asthma, uncomplicated; K21.9 Gastro-esophageal reflux disease without esophagitis; I10 Essential (primary) hypertension; Z88.8 Allergy status to other drugs, medicaments and biological substances; Z79.4 Long term (current) use of insulin; Z79.899 Other long term (current) drug therapy
CPT/HCPCS: 36415; 70450; 80053; 85025; 96372; 99285; J1885; 82948

== ENCOUNTER 2023-05-30 12:46 | Emergency (ER) | payer MEDICARE, OTHER ==
[~2023-05-30] VITALS: Ht 167.6 cm; Wt 69.5 kg
[~2023-05-30 12:46] MED LIST changes: +LORA-476 PO
[2023-05-30 12:57] VITALS: BP 123/68; PULSE 84; RESP 20; TEMP 98; O2SAT 97
[2023-05-30] MEDS ORDERED: KETOROLAC 30 MG/ML VIAL IVP ONE (17:05)
[2023-05-30] MEDS ORDERED: METOCLOPRAMIDE 10 MG/2 ML INJ VIAL IVP ONE (17:05)
[2023-05-30] MEDS ORDERED: NACL 0.9% 1,000 ML IV ONE (17:05)
[2023-05-30 18:20] LABS: BASOPHILS % (AUTO) 0.7 % (0.0-2.0); EOSINOPHILS # (AUTO) 0.1 K/uL (0-0.4); EOSINOPHILS % (AUTO) 1.3 % (0.0-4.0); HEMATOCRIT 45.6 % (36-48); HEMOGLOBIN 15.3 g/dL (12.0-16.0); LYMPHOCYTES # (AUTO) 2.5 K/uL (2.5-16.5); LYMPHOCYTES % (AUTO) 34.8 % (20.5-51.1); MEAN CORPUSCULAR HEMOGLOBIN 30 pg (27-31); MEAN CORPUSCULAR HGB CONC 34 g/dL (33-37); MEAN CORPUSCULAR VOLUME 90.1 fL (80-94); MONOCYTES # (AUTO) 0.6 K/uL (0.8-1.0); MONOCYTES % (AUTO) 8.7 % (1.7-9.3); NEUTROPHILS # (AUTO) 3.9 K/uL (1.8-7.7); NEUTROPHILS % (AUTO) 54.5 % (42.2-75.2); PLATELET COUNT (AUTO) 171 K/uL (140-450); RED BLOOD CELL COUNT(AUTO) 5.06 MIL/uL (4.20-5.40); RED CELL DISTRIBUTION WIDTH 13.2 % (11.6-13.7); WHITE BLOOD COUNT (AUTO) 7.1 K/uL (4.8-10.8)
[2023-05-30 18:38] LABS: CARBON DIOXIDE 27.9 mmol/L (21-32); CHLORIDE 101 mmol/L (98-107); CREATININE 0.7 mg/dL (0.6-1.3); GLUCOSE 128 mg/dL (74-106); POTASSIUM 3.9 mmol/L (3.5-5.1); SODIUM SERUM 138 mmol/L (136-145); UREA NITROGEN, BLOOD 8 mg/dL (7-18)
[2023-05-30] MEDS ORDERED: KETOROLAC 15 MG/ML VIAL ONE (18:48)
[2023-05-30] MEDS ORDERED: METOCLOPRAMIDE 10 MG/2 ML INJ VIAL ONE (18:48)
== END 2023-05-30 19:30 | disposition home or self-care (01) ==
LOC: MED 12:46
DX: R51.9 Headache, unspecified (principal); J45.909 Unspecified asthma, uncomplicated; E11.9 Type 2 diabetes mellitus without complications; K21.9 Gastro-esophageal reflux disease without esophagitis; I10 Essential (primary) hypertension; Z79.899 Other long term (current) drug therapy; Z88.8 Allergy status to other drugs, medicaments and biological substances
CPT/HCPCS: 36415; 80048; 85025; 96361; 96374; 96375; 99284; J1885; J2765; J7030

== ENCOUNTER 2024-02-21 09:07 | Emergency (ER) | payer MEDICARE, OTHER ==
[~2024-02-21] VITALS: Ht 165.1 cm; Wt 64.6 kg
[2024-02-21 09:33] VITALS: BP 137/76; PULSE 67; RESP 18; TEMP 97.4; O2SAT 97
[2024-02-21] MEDS: KETOROLAC 30 MG/ML VIAL IM ONE (10:19)
[2024-02-21] MEDS: PROCHLORPERAZINE 10 MG/2 ML VIAL IM ONE (10:19)
[2024-02-21] MEDS ORDERED: HYDR-5071 PO (11:48)
== END 2024-02-21 12:00 | disposition home or self-care (01) ==
LOC: MED 09:07
DX: G43.909 Migraine, unspecified, not intractable, without status migrainosus (principal); H92.02 Otalgia, left ear; J45.909 Unspecified asthma, uncomplicated; K21.9 Gastro-esophageal reflux disease without esophagitis; I10 Essential (primary) hypertension; Z79.1 Long term (current) use of non-steroidal anti-inflammatories (NSAID); Z79.899 Other long term (current) drug therapy; Z79.2 Long term (current) use of antibiotics; E11.9 Type 2 diabetes mellitus without complications; Z88.8 Allergy status to other drugs, medicaments and biological substances; Z88.6 Allergy status to analgesic agent
CPT/HCPCS: 96372; 99284; J0780; J1885